=== PATIENT | female | born 1935 | race Caucasian/White ===

== ENCOUNTER 2024-08-08 11:50 | Inpatient (IN) ==
[2024-07-26 12:37] LABS: Basophils # (Auto) 0.03 K/mcL (0.00-0.30); Basophils % (Auto) 0.4 % (0.0-2.0); Eosinophils % (Auto) 1.4 % (0.0-7.0); Hematocrit 42.7 % (34.1-44.9); Hemoglobin 13.8 g/dL (11.2-15.7); Lymphocytes # (Auto) 1.73 K/mcL (1.50-4.80); Lymphocytes % (Auto) 24.7 % (15.5-49.0); Mean Cell Volume 94.5 fL (80.0-100.0); Mean Corpuscular HGB Conc 32.3 g/dL (31.0-36.0); Monocytes # (Auto) 0.75 K/mcL (0.10-0.90); Monocytes % (Auto) 10.7 % (1.0-12.0); Neutrophils % (Auto) 62.7 % (38.0-78.0); Platelet Count 250 K/mcL (140-440); RBC 4.52 M/mcL (3.59-5.38); Red Cell Distribution Width 13.2 % (11.5-14.5)
[2024-07-26 13:12] LABS: ALT/SGPT 20 U/L (<40); AST/SGOT 30 U/L (<32); Albumin 4.1 gm/dL (3.2-5.2); Albumin/Globulin Ratio 1.6 (1.0-2.3); Alkaline Phosphatase 82 U/L (39-117); Bilirubin,Total 0.8 mg/dL (0.1-1.0); Blood Urea Nitrogen 16 mg/dL (8-23); Calcium 9.8 mg/dL (8.6-10.4); Carbon Dioxide 26 mmol/L (22-30); Chloride 103 mmol/L (96-108); Globulin 2.5 gm/dL (2.2-3.7); Glomerular Filtration Rate 93; Glucose 96 mg/dL (70-105); Potassium 4.3 mmol/L (3.3-5.1); Sodium 141 mmol/L (133-145)
[2024-07-26 15:32] LABS: Prothrombin Time 13.4 sec (11.9-14.5)
[~2024-08-08 11:50] MED LIST: DEXAMETHASONE 10 MG/ML VIAL ONE; FAMOTIDINE/PF 20 MG/2 ML VIAL IV ONE; GLYCOPYRROLATE 0.2 MG/ML VIAL IV ONE; KETAMINE 50 MG/ML Syringe IV ONE; LIDOCAINE 2% PF 5 ML VIAL ONE; METOCLOPRAMIDE 10 MG/2 ML VIAL ONE; MIDAZOLAM 2 MG/2 ML VIAL ONE; ONDANSETRON 4 MG/2 ML VIAL ONE; PHENYLephrine 1 MG/10 ML SYRINGE (ANEST) ONE; PROPOFOL 200 MG/20 ML VIAL IV ONE; ROCURONIUM 10 MG/ML ML IV ONE; ePHEDrine 50 MG/5 ML SYRINGE (ANEST) IV ONE
[2024-08-08] MEDS: ceFAZolin 2 GM in DEXTROSE 5% IN WATER 50 ML IV SCH (11:59)
[2024-08-08] MEDS ORDERED: fentaNYL 100 MCG/2 ML VIAL IV PRN ×3 (12:17→13:25)
[2024-08-08] MEDS ORDERED: HYDROmorphone 0.5 MG/0.5 ML SYRINGE IV PRN (12:17)
[2024-08-08] MEDS ORDERED: IPRATROPIUM/ALBUTEROL 3 ML AMPUL.NEB NEB PRN (12:17)
[2024-08-08] MEDS ORDERED: NALOXONE HCL 0.4 MG/ML VIAL IV PRN (12:17)
[2024-08-08] MEDS ORDERED: ONDANSETRON 4 MG/2 ML VIAL IV PRN ×2 (12:17→13:27)
[2024-08-08] MEDS ORDERED: SUGAMMADEX SODIUM 200 MG/2 ML VIAL IV ONE (12:42)
[2024-08-08] MEDS: ONDANSETRON 4 MG/2 ML VIAL IV PRN (13:37)
[2024-08-08] MEDS: LACTATED RINGERS 1,000 ML IV SCH (15:00)
[2024-08-08] MEDS: ACETAMINOPHEN 1,000 MG/100 ML BAG IV SCH (15:17)
[2024-08-08] MEDS: 0.9 % SODIUM CHLORIDE 10 ML SYRINGE IV SCH (15:18)
[2024-08-08] MEDS: oxyCODONE IR 5 MG TABLET PO PRN (19:37)
[2024-08-08] MEDS: 0.9 % SODIUM CHLORIDE 1,000 ML IV SCH (20:36)
[2024-08-09 07:10] LABS: Basophils # (Auto) 0.04 K/mcL (0.00-0.30); Basophils % (Auto) 0.4 % (0.0-2.0); Eosinophils # (Auto) 0.02 K/mcL (0.00-0.70); Eosinophils % (Auto) 0.2 % (0.0-7.0); Hemoglobin 13.4 g/dL (11.2-15.7); Lymphocytes # (Auto) 1.57 K/mcL (1.50-4.80); Lymphocytes % (Auto) 16.2 % (15.5-49.0); Mean Cell Volume 95.5 fL (80.0-100.0); Mean Corpuscular HGB Conc 31.9 g/dL (31.0-36.0); Mean Platelet Volume 11.6 fL (8.8-12.5); Monocytes # (Auto) 1.08 K/mcL (0.10-0.90); Monocytes % (Auto) 11.1 % (1.0-12.0); Neutrophils % (Auto) 71.9 % (38.0-78.0); Platelet Count 221 K/mcL (140-440); Red Cell Distribution Width 12.9 % (11.5-14.5); WBC 9.7 K/mcL (4.5-11.0)
[2024-08-09 07:14] LABS: ALT/SGPT 51 U/L (<40); AST/SGOT 65 U/L (<32); Albumin 3.5 gm/dL (3.2-5.2); Albumin/Globulin Ratio 1.5 (1.0-2.3); Alkaline Phosphatase 72 U/L (39-117); Bilirubin,Direct 0.3 mg/dL (<0.3); Bilirubin,Total 0.6 mg/dL (0.1-1.0); Blood Urea Nitrogen 9 mg/dL (8-23); Carbon Dioxide 22 mmol/L (22-30); Chloride 105 mmol/L (96-108); Globulin 2.4 gm/dL (2.2-3.7); Glomerular Filtration Rate 93; Glucose 105 mg/dL (70-105); Lactate Dehydrogenase 239 U/L (135-225); Phosphorous 3.4 mg/dL (2.5-4.5); Potassium 4.4 mmol/L (3.3-5.1); Sodium 139 mmol/L (133-145); Triglycerides 50 mg/dL (<150); Uric Acid 4.8 mg/dL (2.5-8.0)
[2024-08-09] MEDS: THYROID, PORK 60 MG TABLET PO SCH (08:15)
[2024-08-09] MEDS ORDERED: ONDANSETRON 4 MG/2 ML VIAL IV PRN (13:32)
[2024-08-09] MEDS: 0.9 % SODIUM CHLORIDE 10 ML SYRINGE IV SCH (13:45)
[2024-08-09] MEDS: HEPARIN 5,000 UNIT/ML VIAL SQ SCH (20:21)
[2024-08-09] MEDS: ATORVASTATIN 40 MG TABLET PO SCH (20:22)
[2024-08-09] MEDS: DOCUSATE SODIUM 100 MG CAPSULE PO SCH (22:11)
[2024-08-09] MEDS: LACTATED RINGERS 1,000 ML IV SCH (22:42)
[2024-08-10 06:30] LABS: ALT/SGPT 43 U/L (<40); AST/SGOT 49 U/L (<32); Albumin 3.3 gm/dL (3.2-5.2); Albumin/Globulin Ratio 1.7 (1.0-2.3); Alkaline Phosphatase 60 U/L (39-117); Bilirubin,Total 0.5 mg/dL (0.1-1.0); Blood Urea Nitrogen 13 mg/dL (8-23); Calcium 8.1 mg/dL (8.6-10.4); Carbon Dioxide 23 mmol/L (22-30); Chloride 107 mmol/L (96-108); Globulin 1.9 gm/dL (2.2-3.7); Glomerular Filtration Rate 102; Glucose 95 mg/dL (70-105); Potassium 4.1 mmol/L (3.3-5.1); Sodium 138 mmol/L (133-145)
[2024-08-10] MEDS: ASPIRIN 81 MG TAB.CHEW PO SCH (09:24)
[2024-08-10] MEDS: CLOPIDOGREL 75 MG TABLET PO SCH (09:35)
[2024-08-10] MEDS: VITAMIN D3 25 MCG TABLET PO SCH (10:06)
[2024-08-10] MEDS: MULTIVIT,THER IRON,CA,FA & MIN 1 TABLET PO SCH (10:06)
[2024-08-10] MEDS: CALCIUM CARBONATE 500 MG TAB.CHEW CHEWED SCH (10:06)
[2024-08-10] MEDS: MAGNESIUM HYDROXIDE 30 ML ORAL.SUSP PO PRN (13:41)
[2024-08-10] MEDS: ACETAMINOPHEN 325 MG TABLET PO SCH (21:05)
[2024-08-12] MEDS: MAGNESIUM OXIDE 400 MG TABLET PO SCH (12:10)
[2024-08-14 11:48] VITALS: TEMP 98.4; O2SAT 93
== END 2024-08-14 13:15 | DRG 988 ==
LOC: SUR 11:50 → MEDSUR 11:50
PROVIDERS: ADMIT Family Medicine Adult Medicine; ATTEND Family Medicine Adult Medicine